=== PATIENT | male | born 1990 | race Caucasian/White ===

== ENCOUNTER 2020-11-26 10:21 | Emergency (ER) | payer MEDICAID ==
[~2020-11-26] VITALS: Ht 172.7 cm; Wt 81.6 kg
[2020-11-26 10:51] VITALS: BP_SYST 138
[2020-11-26] MEDS ORDERED: LORazepam 2 MG/ML VIAL IVP ONE ×3 (11:30→14:15)
[2020-11-26] MEDS ORDERED: NACL 0.9% 2,000 ML IV ONE (11:30)
[2020-11-26] MEDS ORDERED: LORazepam 2 MG/ML VIAL ONE (11:35)
[2020-11-26 11:44] LABS: BASOPHILS % (AUTO) 0.3 % (0.0-2.0); EOSINOPHILS % (AUTO) 0.2 % (0.0-4.0); HEMATOCRIT 45.2 % (36-54); HEMOGLOBIN 15.6 g/dL (14.0-18.0); LYMPHOCYTES # (AUTO) 1.1 K/uL (1.0-5.5); LYMPHOCYTES % (AUTO) 12.4 % (20.5-51.5); MEAN CORPUSCULAR HEMOGLOBIN 30 pg (27-31); MEAN CORPUSCULAR HGB CONC 35 % (32-36); MEAN CORPUSCULAR VOLUME 88 fL (79.0-98.0); MONOCYTES # (AUTO) 0.3 K/uL (0.0-1.0); NEUTROPHILS # (AUTO) 7.2 K/uL (1.8-7.7); NEUTROPHILS % (AUTO) 84.1 % (40.0-70.0); PLATELET COUNT (AUTO) 226 K/uL (130-430); RED BLOOD CELL COUNT(AUTO) 5.13 MIL/uL (4.2-6.2); RED CELL DISTRIBUTION WIDTH 12.9 % (9.0-15.0); WHITE BLOOD COUNT (AUTO) 8.5 K/uL (4.8-10.8)
[2020-11-26 11:59] LABS: ANION GAP 7 (5-15); CALCIUM 9.2 mg/dL (8.4-11.0); CHLORIDE 102 mmol/L (98-107); CREATININE 0.87 mg/dL (0.55-1.30); GLUCOSE 112 mg/dL (70-99); POTASSIUM 3.6 mmol/L (3.5-5.1); SODIUM SERUM 138 mmol/L (136-145); UREA NITROGEN, BLOOD 13 mg/dL (8-21)
[2020-11-26 12:05] LABS: ALANINE AMINOTRANSFERASE 20 U/L (12-78); ALBUMIN 4.3 g/dL (3.4-4.8); ASPARTATE AMINOTRANSFERASE 22 U/L (10-37); TOTAL BILIRUBIN 0.8 mg/dL (0.0-1.0)
[2020-11-26 12:11] LABS: ALCOHOL, BLOOD < 3 mg/dL (<10); GFR AFRICAN AMERICAN 134 mL/min (>90)
[2020-11-26 12:16] LABS: PROTHROMBIN TIME 10.5 SECS (9.5-12.5)
[2020-11-26 12:42] LABS: BILIRUBIN,URINE NEGATIVE (NEGATIVE); BLOOD, URINE NEGATIVE (NEGATIVE); CLARITY/URINE CLEAR (CLEAR); COLOR,URINE YELLOW (YELLOW); GLUCOSE,URINE NEGATIVE (NEGATIVE); KETONES,URINE 2+ (NEGATIVE); LEUKOCYTE ESTERASE ,URINE NEGATIVE (NEGATIVE); NITRITE, URINE NEGATIVE (NEGATIVE); PROTEIN URINE TRACE (NEGATIVE)
[2020-11-26 12:56] LABS: BARBITURATE, URINE NEGATIVE (NEG <=200); BENZODIAZEPINE, URINE NEGATIVE (NEG <=150); CANNABINOID, URINE POSITIVE (NEG <=50); COCAINE, URINE NEGATIVE (NEG <=150); METHAMPHETAMINES SCREEN,URINE NEGATIVE (NEG <=500); OPIATE, URINE NEGATIVE (NEG <=100); PHENCYCLIDINE SCREEN,URINE NEGATIVE (NEG <=25); UR TRICYCLIC ANTIDEPRESSANTS NEGATIVE (NEG <=300); URINE AMPHETAMINE NEGATIVE (NEG <=500); URINE METHADONE NEGATIVE (NEG <=200); URINE OXYCODONE SCREEN NEGATIVE (NEG <=100); URINE PROPOXYPHENE SCREEN NEGATIVE (NEG <=300)
[2020-11-26] MEDS ORDERED: LORA-259 PO ×2 (14:20→15:01)
[2020-11-26 14:57] VITALS: BP_SYST 131
== END 2020-11-26 14:58 | disposition home or self-care (01) ==
LOC: SED 10:21
DX: F11.23 Opioid dependence with withdrawal (principal); F13.988 Sedative, hypnotic or anxiolytic use, unspecified with other sedative, hypnotic or anxiolytic-induced disorder; F12.90 Cannabis use, unspecified, uncomplicated; Z79.899 Other long term (current) drug therapy
CPT/HCPCS: 36415; 70450; 71045; 76376; 80053; 80307; 81003; 83605; 84484; 85025; 85610; 85730; 87040; 93005; 96374; 96376; 99285; G0482; J2060; J7030